=== PATIENT | female | born 1965 | race African-American/Black ===

== ENCOUNTER 2017-12-25 00:42 | Emergency (ER) | payer OTHER ==
[~2017-12-25] VITALS: Ht 160 cm; Wt 190.5 kg
[2017-12-25] MEDS ORDERED: TOBRAMYCIN SULFA5 M1 OPHTHALMIC (01:16)
== END 2017-12-25 02:11 | disposition home or self-care (01) ==
LOC: ER 00:42
DX: H10.89 Other conjunctivitis (principal)